=== PATIENT | female | born 1995 | race Caucasian/White ===

== ENCOUNTER 2017-12-17 12:57 | Emergency (ER) | payer BC, OTHER ==
[2017-12-17] MEDS ORDERED: NS 1,000 ML IV ONE (13:20)
[2017-12-17] MEDS ORDERED: HYOSCYAMINE SULFATE 0.125 MG TAB PO ONE (13:31)
[2017-12-17] MEDS ORDERED: KETOROLAC 30 MG/1 ML SDV IVP ONE (13:31)
[2017-12-17 13:49] LABS: PLATELET COUNT 256 10^3/uL (150-400)
--- NOTE | 2017-12-17 14:43 | EDPHY ---
H & P Stated Complaint: c/o mid abd Source: Patient Exam Limitations: No limitations - Personal History LMP (Females 10-55): 8-14 Days Ago Current Tetanus Diphtheria and Acellular Pertussis (TDAP): Yes - Medical/Surgical History Hx Asthma: No Hx Chronic Respiratory Disease: No Hx Diabetes: No Hx Cardiac Disease: No Hx Renal Disease: No Hx Cirrhosis: No Hx Alcoholism: No Hx HIV/AIDS: No Hx Splenectomy or Spleen Trauma: No Other PMH: ovarian cyst - Family History Significant Family History: No pertinent family hx - Social History Smoking Status: Current some day smoker Alcohol Use: Rarely Drug Use: Marijuana Time Seen by Provider: 12/17/17 13:14 HPI/ROS: This patient complains of lower abdominal pain that was gradual in onset this morning. She explains that for the past 2 months she has tended to have abdominal pains in the morning that crampy in nature lower belly location that will improve after bowel movements. However, today she had a bowel movement without improvement. She reports 8/10 pain at peak intensity currently moderate intensity with no clear exacerbating factors. It is crampy and nonradiating. Her last normal menstrual period was 11/27/2017. This morning she tried Ponstel, prescribed by her primary care physician for menstrual cramps without significant improvement. She notes no other exacerbating factors. She came in by private vehicle accompanied by her boyfriend for further evaluation. ROS: Constitutional: No fevers or chills. No fatigue. HEENT: Mild coryza for the past 2 days. No other HEENT complaints Pulmonary: No cough shortness of breath Cardiovascular: No heart palpitations or lightheadedness. GI: Normal bowel movements though slightly loose this morning. : No dysuria. No vaginal discharge. Integumentary: No skin rash Endocrine: No complaints Neuro: No complaints Complete review of symptoms otherwise negative. (Shelton Jay) - Medical/Surgical History PMH: 2 months of crampy abdominal pain UTI Ovarian cyst (Shelton Jay) - Physical Exam Exam: Vital signs are normal General Appearance: Pleasant thin 22-year-old female Alert, no distress. Eyes: Pupils equal and round no pallor or injection. ENT, Mouth: Mucous membranes moist. Respiratory: There are no retractions, lungs are clear to auscultation. Cardiovascular: Regular rate and rhythm. Gastrointestinal: Hyperactive bowel sounds, soft, diffuse lower belly tenderness with no guarding or rebound. No organomegaly. Back: No CVA tenderness Neurological: GCS 15 without focal deficits appreciated. Skin: Warm and dry, no rashes. Extremities are symmetrical, full range of motion. Psychiatric: Mood and affect are normal DIFFERENTIAL DIAGNOSIS: After history and physical exam differential diagnosis was considered for constipation, food intolerance, ovarian cyst, ectopic , UTI, appendicitis, mesenteric adenitis, IBS (Shelton Jay) Constitutional: Initial Vital Signs Temperature (C) 36.6 C 12/17/17 13:12 Heart Rate 60 12/17/17 13:12 Respiratory Rate 20 12/17/17 13:12 Blood Pressure 125/62 H 12/17/17 13:12 O2 Sat (%) 98 12/17/17 13:12 O2 Delivery Mode Room Air Allergies/Adverse Reactions: No Known Allergies Allergy (Unverified 12/04/15 14:34) Home Medications: Medication Instructions Recorded Bc Pills 12/17/17 Hyoscyamine Sulfate [Levsin, 0.125 - 0.25 mg SL Q6 PRN #20 tab 12/17/17 Hyomax-Sl 0.125 mg (*)] Ponatinib HCl 12/17/17 Medical Decision Making - Diagnostics Imaging Results: Imaging Impressions Pelvic/Renal Ultrasound 12/17/17 14:00 Impression: 1. Mixed attenuation, mildly complex fluid collection within the left ovary most suggestive of a hemorrhagic cyst. Recommend correlation with the location of pelvic pain. 2. Small simple to minimally complex free fluid in the pelvis is likely reactive. Abdomen Ultrasound 12/17/17 14:01 Impression: 1. Nondiagnostic assessment of the appendix. 2. Right lower quadrant mesenteric adenitis. If there is further clinical concern regarding the patient's right lower quadrant pain, contrast-enhanced CT imaging could be considered. Findings were discussed with Geovanny Starkey MD at 15:44, on 12/17/2017. ED Course/Re-evaluation: IV normal saline bolus, Levsin sublingual Toradol IV with improvement in her pain Labs: CBC reveals mild leukocytosis. Basic metabolic panel is normal. HCG is negative. Urinalysis is normal Discussion: This patient improved with above treatment plan. I think she most likely has chronic constipation, food intolerance or IBS causing her symptoms. However ultrasound ovaries and abdomen are pending. I spoke with Dr. Starkey around at 3:00 p.m. With these results pending. He will finalize disposition for this patient but anticipate her going home with treatment for constipation ( Shelton Jay) Other Provider: 1500 patient signed out from Dr. Jay pending abdominal and pelvic ultrasound. Patient is improved after Levsin and Toradol. 1550 ultrasound of the abdomen shows a nonvisualized appendix. There is no free fluid. There is no point tenderness over the appendix. There is a small 1 cm lymph node. Ultrasound of the pelvis shows a 2.3 cm left hemorrhagic cyst. Small amount of free fluid. Patient's symptoms however sound chronic. The circuit because by the cyst. She has an appointment to see OBGYN next week. Pain is otherwise controlled here. I do not think she has acute appendicitis based on the history. On examination here she has diffuse tenderness left equaling right. Does not have particular tenderness over McBurney's point. Will discharge with follow up with OBGYN, return for any concerns. (Geovanny Starkey) - Data Points Laboratory Results: Laboratory Results 12/17/17 13:40 12/17/17 13:40 12/17/17 12/17/17 12/17/17 14:35 13:40 13:40 WBC RBC Hgb Hct MCV MCH MCHC RDW Plt Count MPV Neut % (Auto) Lymph % (Auto) Sharkey % (Auto) Eos % (Auto) Baso % (Auto) Nucleat RBC Rel Count Absolute Neuts (auto) Absolute Lymphs (auto) Absolute Monos (auto) Absolute Eos (auto) Absolute Basos (auto) Absolute Nucleated RBC Immature Gran % Immature Gran # Sodium 138 mEq/L mEq/L (135-145) Potassium 4.4 mEq/L mEq/L (3.5-5.2) Chloride 109 mEq/L mEq/L (97-110) Carbon Dioxide 21 mEq/l L mEq/l (22-31) Anion Gap 8 mEq/L mEq/L (8-16) BUN 9 mg/dL mg/dL (7-23) Creatinine 0.8 mg/dL mg/dL (0.6-1.0) Estimated GFR > 60 Glucose 86 mg/dL mg/dL (70-100) Calcium 9.6 mg/dL mg/dL (8.5-10.4) Beta HCG, Qual NEGATIVE Urine Color YELLOW Urine Appearance HAZY Urine pH 6.0 (5.0-7.5) Ur Specific [place] 1.025 (1.002-1.030) Urine Protein NEGATIVE (NEGATIVE) Urine Ketones NEGATIVE (NEGATIVE) Urine Blood NEGATIVE (NEGATIVE) Urine Nitrate NEGATIVE (NEGATIVE) Urine Bilirubin NEGATIVE (NEGATIVE) Urine Urobilinogen 0.2 EU EU (0.2-1.0) Ur Leukocyte Esterase NEGATIVE (NEGATIVE) Urine Glucose NEGATIVE (NEGATIVE) 12/17/17 13:40 WBC 11.54 10^3/uL H 10^3/uL (3.80-9.50) RBC 4.84 10^6/uL 10^6/uL (4.18-5.33) Hgb 13.6 g/dL g/dL (12.6-16.3) Hct 40.8 % % (38.0-47.0) MCV 84.3 fL fL (81.5-99.8) MCH 28.1 pg pg (27.9-34.1) MCHC 33.3 g/dL g/dL (32.4-36.7) RDW 13.7 % % (11.5-15.2) Plt Count 256 10^3/uL 10^3/uL (150-400) MPV 10.0 fL fL (8.7-11.7) Neut % (Auto) 77.4 % H % (39.3-74.2) Lymph % (Auto) 11.6 % L % (15.0-45.0) Sharkey % (Auto) 9.9 % % (4.5-13.0) Eos % (Auto) 0.6 % % (0.6-7.6) Baso % (Auto) 0.2 % L % (0.3-1.7) Nucleat RBC Rel Count 0.0 % % (0.0-0.2) Absolute Neuts (auto) 8.93 10^3/uL H 10^3/uL (1.70-6.50) Absolute Lymphs (auto) 1.34 10^3/uL 10^3/uL (1.00-3.00) Absolute Monos (auto) 1.14 10^3/uL H 10^3/uL (0.30-0.80) Absolute Eos (auto) 0.07 10^3/uL 10^3/uL (0.03-0.40) Absolute Basos (auto) 0.02 10^3/uL 10^3/uL (0.02-0.10) Absolute Nucleated RBC 0.00 10^3/uL 10^3/uL (0-0.01) Immature Gran % 0.3 % % (0.0-1.1) Immature Gran # 0.04 10^3/uL 10^3/uL (0.00-0.10) Sodium Potassium Chloride Carbon Dioxide Anion Gap BUN Creatinine Estimated GFR Glucose Calcium Beta HCG, Qual Urine Color Urine Appearance Urine pH Ur Specific [place] Urine Protein Urine Ketones Urine Blood Urine Nitrate Urine Bilirubin Urine Urobilinogen Ur Leukocyte Esterase Urine Glucose Medications Given: Discontinued Medications Hyoscyamine Sulfate (Levsin, Hyomax-Sl) 0.25 mg PO EDNOW ONE Stop: 12/17/17 13:32 Last Admin: 12/17/17 13:53 Dose: 0.25 mg Sodium Chloride (Ns) 1,000 mls @ 0 mls/hr IV EDNOW ONE; Wide Open PRN Reason: Protocol Stop: 12/17/17 13:21 Last Admin: 12/17/17 13:42 Dose: 1,000 mls Ketorolac Tromethamine (Toradol) 30 mg IVP EDNOW ONE Stop: 12/17/17 13:32 Last Admin: 12/17/17 13:54 Dose: 30 mg Departure - Departure Disposition: Home, Routine, Self-Care Clinical Impression: Lower abdominal pain, Ovarian cyst Condition: Good Instructions: Acute Abdominal Pain (ED), Ovarian Cyst (ED) Additional Instructions: Diagnosis: 1. Lower abdominal pain Plan: Levsin and ibuprofen for pain if needed. Given the ear symptoms 10 to improve after bowel movements, you may have an element of chronic constipation. With this in mind try the blow treatment plan to"MDI or: Over the next handful of days to see if this helps resolve her symptoms. Colace stool softener-1 - 2 day Milk a magnesia-30 mL a day [place] oil 1-2 tbsp a day Enemas as needed Above plan until the having 1 more bowel movements today. If you start having loose stools then dropped 1 of these therapies that time starting from the bottom going up for the top the list. Call your primary care physician to arrange follow-up appointment for further evaluation Return for any significant worsening despite the treatment plan Referrals: Bernard Pastor PA [Primary Care Provider] - As per Instructions Prescriptions: Hyoscyamine Sulfate [Levsin, Hyomax-Sl 0.125 mg (*)] 0.125 - 0.25 mg SL Q6 PRN # 20 tab PRN Reason: abdominal cramping
[2017-12-17 16:18] VITALS: BP 118/62
== END 2017-12-17 16:12 | disposition home or self-care (01) ==
LOC: CED 12:57
DX: N83.202 Unspecified ovarian cyst, left side (principal); E86.9 Volume depletion, unspecified
CPT/HCPCS: 76705-PO; 76856-PO; 80048-PO; 84703-PO; 96374; J1885